=== PATIENT | male | born 1990 | race Caucasian/White ===

== ENCOUNTER → 2016-11-26 11:42 | Emergency (ER) | payer OTHER | END | disposition home or self-care (01) | LOC: SED 11:42 | DX: R11.2 Nausea with vomiting, unspecified (principal); R19.7 Diarrhea, unspecified; R10.9 Unspecified abdominal pain; F17.210 Nicotine dependence, cigarettes, uncomplicated; Z90.89 Acquired absence of other organs; Z88.8 Allergy status to other drugs, medicaments and biological substances | CPT/HCPCS: 99283 ==

== ENCOUNTER 2016-12-17 11:14 | Emergency (ER) | payer OTHER ==
--- NOTE | ~2016-12-17 | CR2 ---
[facility] A Service of [facility] RADIOLOGY TEXT RESULTS PATIENT: RYNE HOLDER LOCATION: SED : 91 UNIT #: [id number] AGE: [address]: Camille Chen APRN SEX: M ORDER DR: [id number] [place] [id number] MR#: [id number] Acc #: [id number] NAME: RYNE HOLDER : 1990 SEX: M STUDY DATE/TIME: 12/17/2016 10:32 UNIT: SED ROOM: STUDY DESCRIPTION: CR Abdomen Acute Series Attending Physician: Camille Chen A.P.R.N. Ordering Physician: Camille Chen A.P.R.N. Primary Care Physician: Primary Care Physician No MEDICAL IMAGING REPORT This report is preliminary unless electronic signature is present. EXAM Acute abdomen series with chest HISTORY Nausea, vomiting and diarrhea beginning yesterday. FINDINGS An AP view of the chest and flat and upright views of the abdomen are obtained. Chest radiograph is normal. Flat and upright views of the abdomen are unremarkable, bowel gas pattern is normal. CONCLUSION Negative acute abdomen series with chest. Dictated by... Mitch Montana M.D. THIS IS AN ELECTRONICALLY VERIFIED REPORT Mitch Montana M.D. at 12/17/2016 5:03 PM DUY/rhoda TD: 12/17/2016 12:36 JOB #: [id number] MEDICAL IMAGING REPORT Page 1 of 1
[2016-12-17 10:54] LABS: URINE SOURCE CLEAN CATCH
[2016-12-17 10:58] LABS: URINE APPEARANCE HAZY; URINE BLOOD NEG (NEG); URINE COLOR DK YELLOW; URINE GLUCOSE NEG (NORM); URINE KETONE NEG (NEG); URINE LEUKOCYTE ESTERASE NEG (NEG); URINE NITRATE NEG (NEG); URINE PH 7.5 (5-8); URINE PROTEIN TRACE (NEG)
[2016-12-17 10:58] LABS: BASOPHIL% 0.4 % (0-2.5); EOSINOPHIL# 0.1 X10e3 (0-0.7); EOSINOPHIL% 0.9 % (0.0-7.0); HEMATOCRIT 48.7 % (38.0-50.0); HEMOGLOBIN 16.7 gm/dL (13.0-16.0); LYMPHOCYTE% 14.6 % (17.0-45.0); MEAN CELL VOLUME 93.7 FL (83-96); MEAN CORPUSCULAR HEMOGLOBIN 32.1 PG (28-34); MEAN CORPUSCULAR HGB CONC 34.3 g/dL (30-36); MEAN PLATELET VOLUME 10.2 FL (6.5-11.5); MONOCYTE# 0.5 X10e3 (0-1.0); MONOCYTE% 7.2 % (3.0-12.0); NEUTROPHIL# 5.2 X10e3 (1.5-7.1); NEUTROPHIL% 76.9 % (40-75); PLATELET COUNT 182 X10e3 (140-420); RED CELL DISTRIBUTION WIDTH 13.8 % (11.0-15.5); WHITE BLOOD COUNT 6.7 X10e3 (4.0-10.5)
[2016-12-17 11:00] LABS: MICRO INDICATED? YES; URINE BILIRUBIN NEG (NEG)
[2016-12-17 11:01] LABS: DIFF IND NO
[2016-12-17 11:03] LABS: URINE RBC 0-2 /[HPF] (0-2)
[2016-12-17 11:05] LABS: CULTURE INDICATED? YES; URINE BACTERIA 1+ (NEG); URINE SQUAMOUS EPITHELIAL CELL OCCAS /[HPF]
[2016-12-17 11:06] LABS: URINE AMORPHOUS SEDIMENT AMORP PHOSPHATES; URINE MUCUS PRESENT
[2016-12-17 11:22] LABS: ALBUMIN SERUM 4.7 g/dL (3.5-5.0); BILIRUBIN, DIRECT 0.2 mg/dL (0.0-0.2); BILIRUBIN,INDIRECT 0.5 mg/dL (0.0-0.9); BILIRUBIN,TOTAL 0.7 mg/dL (0.2-2.0); BUN/CREATININE RATIO 14.28; CALCIUM SERUM 9.7 mg/dL (8.4-10.2); CREATININE SERUM 0.7 mg/dL (0.6-1.4); GLOM FILT RATE Estimated 131.2 mL/min (>60); POTASSIUM 4.1 mmol/L (3.5-5.1); PROTEIN TOTAL SERUM 7.8 g/dL (6.0-8.3)
== END 2016-12-17 12:09 | disposition home or self-care (01) ==
LOC: SED 11:14
PROVIDERS: Nurse Practitioner
DX: K29.00 Acute gastritis without bleeding (principal); F17.200 Nicotine dependence, unspecified, uncomplicated; Z88.1 Allergy status to other antibiotic agents
CPT/HCPCS: 36415; 74022; 80048; 80076; 81003; 83690; 85025; 86677; 87086; 96374; 96375; 99283; 99284; C9113; J2405

== ENCOUNTER → 2017-01-02 | Outpatient (CLI) | payer OTHER ==
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
== END | disposition home or self-care (01) ==
LOC: SRAD 14:40
DX: S32.019D Unspecified fracture of first lumbar vertebra, subsequent encounter for fracture with routine healing (principal); M47.895 Other spondylosis, thoracolumbar region
CPT/HCPCS: 72100